=== PATIENT | female | born 1990 | race Two or more races ===

== ENCOUNTER 2024-10-01 16:16 | Emergency (ER) | payer OTHER ==
[~2024-10-01] VITALS: Ht 175.3 cm; Wt 68.0 kg
[2024-10-01] MEDS ORDERED: LEXAPRO5 MG (16:55)
[2024-10-01] MEDS ORDERED: FLUCONAZOLE150 MG PO (19:19)
[2024-10-01] MEDS ORDERED: AUGMENTIN125 MG/5 M PO (19:19)
[2024-10-01] MEDS ORDERED: CHLORASEPTIC M118 ML MM (19:19)
== END 2024-10-01 19:23 | disposition home or self-care (01) ==
LOC: ER 16:19
DX: J02.8 Acute pharyngitis due to other specified organisms (principal); Z88.8 Allergy status to other drugs, medicaments and biological substances